=== PATIENT | female | born 1960 | race Caucasian/White ===

== ENCOUNTER → 2016-10-23 | Outpatient (CLI) | payer OTHER ==
[~2016-10-23] MED LIST: AMBIEN 5 MG TABL5 M1 PO; AMLODIPINE BESYL5 MG PO; CALCIUM WITH M1 EACH PO; COQ-10100 MG PO; DOXYCYCLINE HYC50 MG PO; FISH OIL 1,0001 EAC5 PO; HYDROCODONE-AP1 EAC6 PO; LEVOTHROID150 MC1 PO; LEXAPRO 10 MG T10 MG PO; METAMUCIL0.52 GM PO; MULTIVITAMINS PO; NIACIN 500 MG500 M1 PO; PRAVACHOL80 MG PO; VITAMIN D400 UNI1 PO; VITCB500GO PO; ZESTRIL20 MG PO; ZYRTEC10 M5 PO
--- NOTE | ~2016-10-23 | EXE ---
[facility] [place] [place] [employer] [place] [address] STRESS ECHOCARDIOGRAM Name: BREE TAN Room #: REG CL [facility]#: [id number] Admission: 10/23/16 Attend Phys: Vladimir Rob MD Discharge: Date of : 62 Date of Service: 10/23/16 1134 Report #: [id number] THIS REPORT FOR: //name// APPROVED REPORT Exam: Stress Echocardiogram Reason for Exam: Screening for CAD Stress Nurse: Alix Avitia RN HR: 70 bpm Medical History Medical History: HTN Cardiac Risk Factors: HTN, FHX of CAD Pretest Chest Pain Characteristics: No chest pain Exercise History: Indeterminate Procedure The patient underwent an Exercise Stress Test using the Zackery Protocol. Blood pressure, heart rate, and EKG were monitored. An Echocardiogram was performed by circuit board repair technician in four stages in quad fashion. At peak stress, four selected images were obtained and placed side by side with resting images for comparison. Testing Details Test: Exercise stress testing was performed using a Zackery protocol. HR Resting HR: 70 bpm Max Heart Rate (APMHR): 165 bpm Max HR Achieved: 150 bpm Target HR (85% APMHR): 140 bpm % of APMHR: 90 Recovery HR: 92 bpm HR response to stress: Normal HR response to stress BP Resting BP: 132/84 mmHg Max BP: 180/82 mmHg Recovery BP: 150/72 mmHg ECG Resting ECG: Sinus Rhythm, nonspecific ST-T abnormalities Stress ECG: Sinus Rhythm, nonspecific ST-T abnormalities ST Change: Non-ischemic [address] [place] [address] STRESS ECHOCARDIOGRAM Name: BREE TAN Room #: REG [facility]#: [id number] Admission: 10/23/16 Attend Phys: Vladimir Rob MD Discharge: Date of : 62 Date of Service: 10/23/16 1134 Report #: [id number] Clinical Reason for Termination: Maximal effort Exercise duration: 10 min Exercise capacity: 13.4 METs Overall Exercise Capacity for Age: Average Pre-Stress Echo The resting Echocardiogram showed normal left ventricular contractility with an estimated Ejection Fraction of about 55-60%. Post-Stress Echo The stress Echocardiogram showed normal left ventricular contractility with an estimated Ejection Fraction of about >70%. Clinical Normal augmentation of myocardial wall segments using a 17 segment model. Conclusion Clinical Response: Non-ischemic Stress ECG Response: Non-ischemic Stress Echo Images: Non-ischemic No prior study available for comparison. <ELECTRONICALLY SIGNED> By: Vladimir Rob MD 10/23/16 1134 1134 1134 Vladimir Rob MD /INF
== END ==
LOC: CV 08:24
DX: I10 Essential (primary) hypertension (principal)